=== PATIENT | female | born 1950 | race Caucasian/White ===

== ENCOUNTER 2021-08-10 08:59 | Day surgery (SDC) | payer SELFPAY ==
--- NOTE | 2021-08-05 14:18 | EKG12_ITS ---
Test Reason : PRE OP Blood Pressure : / mmHG Vent. Rate : 064 BPM Atrial Rate : 064 BPM P-R Int : 110 ms QRS Dur : 090 ms QT Int : 406 ms P-R-T Axes : 063 080 028 degrees QTc Int : 418 ms Sinus rhythm with short NM Nonspecific ST abnormality Abnormal ECG Confirmed by PIERCE CROFT, HERIBERTO ([id number]), online editor ARGELIA LINK ([id number]) on 08/06/2021 10:11:00 AM Referred By: Morgan Rouse Confirmed By:HERIBERTO PELAYO MD
[2021-08-05 15:44] LABS: Hematocrit 43.6 % (37-47); Hemoglobin 14.4 g/dL (12.0-15.0); Mean Corpuscular Hgb 29.9 pg (27.0-32.0); Mean Corpuscular Volume 90.5 fL (81-99); Mean Platelet Vol. 10.7 fl (6.2-12.0); Platelet Count 287 K/mm3 (150-450); RBC Distribution Width CV 13.6 % (11.6-14.6); RBC Distribution Width SD 45.2 fl (35.1-43.9); Red Blood Count 4.82 M/mm3 (4.2-5.4); White Blood Count 5.5 K/mm3 (4.4-11.0)
[2021-08-05 15:59] LABS: Prothrombin Time (Protime)PT. 12.7 SECONDS (11.7-14.9)
[2021-08-05 16:00] LABS: Partial Thromboplast Time 35.4 Seconds (24.1-36.2)
[2021-08-05 16:19] LABS: AST(SGOT) 19 U/L (15-37); Alanine Aminotransfer ALT/SGPT 31 U/L (13-56); Albumin, Serum 3.8 g/dL (3.2-5.0); Alkaline Phosphatase 42 U/L (45-117); Anion Gap 5 (5-15); BUN 14 mg/dL (7-18); BUN/Creat Ratio 15.9 RATIO (10-20); Bilirubin, Direct 0.14 mg/dL (0.00-0.30); Calcium,Total 9.5 mg/dL (8.5-10.1); Chloride 103 mmol/L (98-107); Creatinine, Serum 0.88 mg/dL (0.55-1.02); EST Glomerular Filtration Rate 68 mL/min (>60); Est Glom Filt Rate - Afr Amer 82 mL/min (>60); Globulin 3.9 g/dL (2.2-4.2); Glucose 97 mg/dL (74-106); Magnesium 2.5 mg/dL (1.6-2.6); Potassium 3.9 mmol/L (3.5-5.1); Protein, Total 7.7 g/dL (6.4-8.2); Sodium Level 139 mmol/L (136-145)
--- NOTE | 2021-08-09 13:05 | PCM.HP.BLA ---
History and Physical Date of Admission: 08/10/21 Surgical History and Physical Laury Leblanc, a 71 year old female 0, presents for AP Repair on August 10, 2021 at 10:30. -- Bladder Prolapse and Pressure -- Laury presents with c/o a bulge from her vagina which began approx 6-8yrs ago and has been worsening to the point she cannot urinate without pushing it back in. Pt also relates she has difficulty moving her bowels at times when this pressure/bulge is severe. Pt had a RAHEL/BSO in 1998 and took hrT's for approx 5yrs, and several yrs after stopping the HRT's she noted this starting. Cystocele which began years ago. Laury claims it started gradually and has been present constantly for years. It occurs all the time. It is located in the vagina. Severity is severe. It is aggravated by any activity. Associated signs and symptoms are Bulge from vagina. Additional comments are: Had an abdominal hysterectomy done 20+ years ago. Stopped estrogen approximately 5 years after that. Has had symptoms for about 15 years. MEDICATIONS HISTORY: ALLERGIES: Keflex, Rash Infections - Chicken pox childhood Illnesses - Diverticulitis, DVT Accidents - None Hospitalizations - see surgery Review of Systems: GENERAL - Denies fever, or chills SKIN - Denies skin changes EYES - Denies visual changes EARS - Denies difficulty hearing NOSE - Denies nasal congestion or bleeding MOUTH - Denies sore throat or difficulty swallowing NECK - Denies pain or swelling RESPIRATORY - Denies shortness of breath or wheezing CARDIOVASCULAR - Denies palpitations or chest pain GASTROINTESTINAL - Denies nausea, vomiting, diarrhea, constipation GENITOURINARY - Denies dysuria, frequency of urination, incontinence of urine MUSCULOSKELETAL - Denies joint or muscle pain NEUROLOGICAL - Denies localized numbness or weakness PSYCHIATRIC - Denies depression or anxiety ENDOCRINE - Denies heat or cold intolerance, weight loss or gain HEMATO-IMMUNOLOGIC - Denies excesive bleeding with cuts SOCIAL HISTORY: Alcohol Use - denies drinking Smoking - denies smoking Diet - balanced Diet Lifestyle - moderate stress lifestyle and single Exercise - active work Seat Belt Use - N/A Employer - [employer] and self employed Job Description - [employer] Illicit Drug Use - denies use of street drugs Sexual Activity - sexually inactive Control - Not active FAMILY HISTORY: nc MENSTRUAL HISTORY: LMP Known?- Prior Hysterectomy PAST PREGNANCIES: Total Pregnancies - 0; Full Term Pregnancies - 0; Premature - 0; Abortions, Induced - 0; Abortions, Spontaneous - 0; Ectopics - 0; Multiple Births - 0; Living Children - 0 SURGICAL HISTORY: 1. Umbilical and Inguinal hernia repair 2015 2. RAHEL/BSO, 1998 3. Appendectomy 2013 PHYSICAL EXAM BP- 158/86 Sitting, Right arm, regular cuff Weight- 191.26554 lbs Height- 62 inch BMI:35.0 CONSTITUTIONAL - NAD, well nourished, and well developed SKIN - No rash, lesions, or ulcers HEENT - Normocephalic, PERRLA, EOMI NECK - No nodes, no nuchal rigidity and thyroid normal size and texture LYMPH NODES - Palpation of lymph nodes in neck and groins within normal limits LUNGS - CTA x2 without wheezes, crackles or rales CARDIAC - Regular rate and rhythm without rubs, murmurs, or gallops ABDOMEN - Without hepatosplenomegaly, distention, masses, rebound, or guarding; normal bowel sounds; no hernias EXTREMITIES - No edema or calf tenderness NEUROLOGICAL - Cranial nerves II-XII grossly intact PSYCHIATRIC - A and O to time, place, person, mood and affect External Genitial Vagina - non-tender without lesions Urethra/Urethral Meatus - non-tender Bladder - non-tender Vagina - loss of rugae, Large cystocele which protrudes 4 to 5 cm outside of the vaginal introitus. Some hyperkeratosis present., Possible enterocele present. Mild rectocele present and moderately open perineal body. Cervix - Prior hysterectomy-well healed vaginal cuff Uterus - prior hysterectomy-absent Adnexa - clear without massess or tenderness ASSESSMENT/PLAN: 1. Cystocele Midline Large and symptomatic. Discussed treatment options including expectant management, pessary use, or proceeding with an anterior posterior repair. Patient desires the surgery. Will use intravaginal estrogen and proceed and for to 6 weeks. Discussed the procedure at length including the risks, benefits, and alternatives and patient desires that we proceed. She also understands that she should use intravaginal estrogen for extended period of time to help prevent recurrence. All questions were answered and we consider the patient well-informed.
[2021-08-10] VITALS (12 sets, daily range): BP systolic 112–196; BP diastolic 54–85; PULSE 47–69; RESP 16–17; TEMP 36–37.1; O2SAT 94–100; BMI 34.2; BMI 36.3
[2021-08-10] MEDS: Lactated Ringers 1,000 ML 100 ML IV ×3 (09:55→14:22)
--- NOTE | 2021-08-10 10:40 | VAGMU_PTH ---
PATIENT: LAW GIFFORD [place] [facility] [place][id number] AGE/SX: 71/F ROOM: RE08/10/[address]: Dr. Morgan Rouse MD : [id number] BED: DIS: 08/11/2021 SPEC #: [id number] RECD: 08/10/21 13:54 STATUS: GORDON PITTS #: [id number] ENRIQUE: 08/10/21 10:[address]: Morgan Rouse DEPT: SURGICAL PATHOLOGY RECD BY: Marti Richardson ENTERED: 08/11/21 08:53 SP TYPE: VAG MUCOSA OTHR DR: MD Dr. Clayton Barahona MD Tissues: Vagina, NOS Procedures: Surgery Specimen Level III HEADER OPERATION: Repair, anterior and posterior PRE-OP DIAGNOSIS: Cystocele midline TISSUE SUBMITTED: Vaginal mucosa MICROSCOPIC DIAGNOSIS Vaginal mucosa, anterior and posterior repair: Fragments of squamous mucosa with minimal chronic inflammation. SJ:chencho 08/12/2021 MICROSCOPIC DESCRIPTION Slides are reviewed. GROSS DESCRIPTION Received in fixative is one container labeled with the patient's name and designated vaginal mucosa. The specimen consists of eight irregular fragments of pink-louis mucosa and attached submucosal tissue ranging in size from 1 to 8 cm. No mucosal mass lesions are identified. Data Recovery Planner sections are submitted in two cassettes. / AM:chencho 08/11/21 TC:3 CPT: 83002
[2021-08-10] MEDS: Cefotetan 2 GM in 0.9% NS 100 ML IV (11:07)
--- NOTE | 2021-08-10 11:09 | OP.PCM_ITS ---
Report of Operation Date of Procedure: 08/11/21 Pre-Operative Diagnosis: Cystocele and Rectocele Post-Operative Diagnosis: Cystocele and Rectocele Surgery/Procedure Performed:: Anterior and Posterior Repair Description of Surgical Findings:: Large cystocele protruding 3 to 4 cm outside vaginal introitus. Moderate rectocele. Surgeon: Morgan Rouse sales development director: Marguerite Rincon sales development director: Raghavendra Kasper Type of Anesthesia: General/Regional (Endotracheal) Anesthesiologist: Chava William Specimen's removed: Vaginal mucosa Drains: Heart to straight drain Estimated Blood Loss (mL): 100 cc Fluids Replaced: Crystalloid Description of Procedure: Surgeon: Morgan Rouse MD, FACOG Indications: This is a 71-year-old patient who is been having problems with cystocele and rectocele after hysterectomy. Conservative measures have not been helpful. Given this the patient desires that we proceed the above procedure. She has been counseled regarding the risk and indications of this procedure including the possibility of bleeding, infection, and injury to surrounding structures such as bowel bladder. All questions were answered. Procedure: Patient was taken to the operating room where after induction of general anesthesia she was placed in the dorsal lithotomy position and prepped and draped in the usual sterile fashion. The bladder was drained of approx imately 50 cc of clear yellow urine with red rubber catheter. Anterior vaginal mucosa was undermined and divided and then imbricated toward the midline with interrupted 0 Vicryl sutures. Vaginal mucosa was trimmed and then closed with interrupted 2-0 chromic suture. Hemostasis was noted. Attention was turned toward the posterior repair portion of the procedure. Remnants of the hymenal ring were grasped with Allises and a V-shaped incision was made in the perineum. Rectovaginal mucosa was then undermined divided and then imbricated toward the midline with interrupted 0 Vicryl suture. Vaginal mucosa was trimmed and then closed with running locked 2-0 chromic suture. Remnants of the bulbocavernosus muscles were identified and brought toward the midline with a single [id number] 0 Vicryl suture and perineum was closed in the usual fashion with running and subcuticular, and [id number] 2-0 chromic suture. Hemostasis was noted. Heart catheter was placed and clear yellow urine was noted. Vagina was packed with iodoform tape. Patient tolerated the procedure well was taken to recovery room in satisfactory condition; sponge instrument and needle counts were all reportedly correct. Estimated blood loss for the case was 100 cc. Ancef 2 g IV was given prior to beginning the operative procedure. There were no apparent complications of the surgery. Specimen to pathology was vaginal mucosa. Grafts/Implants Used: None Admit VTE Documentation VTE Present on Admission: Yes VTE Mechan Device Prophylaxis: SCD's VTE Pharm Prophylaxis ordered?: Yes
--- NOTE | 2021-08-10 11:12 | DCINST_ITS ---
Discharge Instructions Diet Discharge Diet: No restrictions Activity Discharge Activity: May Shower and May Take a Tub Bath May resume sexual activity in: 6 weeks (nothing in the vagina.) Lifting Restrictions: 25 pounds for 6 weeks. Additional Activity Instructions:: Nothing in the vagina for 6 weeks please; no lifting more than 20-25 lbs for 6 weeks. Use Ibuprophen 800 mg orally every 8 hours as needed for pain. Can also add Tylenol 1000 mg every 8 hours if needed for pain. If Ibuprophen and Tylenol are not effective then use the Oxycodone but keep in mind it can cause serious constipation issues. Drink lots of water. Call if bleeding more than a pad per hour. Use the colace as constipation is a big issue after this type of surgery. Steps and walking are OK. Activity is encouraged but do not over do it !! Follow Up Care Please Follow Up With: Morgan Rouse MD When: Call [phone] for an appointment to be seen in 2 weeks. Test Results: Test results from this visit will be discussed in further detail at your follow-up appointment, if applicable. Discharge Plan Admission Primary Reason for Your Visit: Anterior and posterior repair Attending Provider: Morgan Rouse Primary Care Provider: Clayton Strauss Consulting Providers: Rajeev Rouse Discharge Orders/Prescriptions Prescriptions: New oxycodone 5 mg capsule 5 mg PO Q6H PRN (Reason: pain) 7 Days Qty: 7 RF: 0 docusate sodium 100 mg tablet 100 mg PO BID PRN (Reason: constipation) Qty: 60 RF: 1 Continued magnesium 500 mg Tablet 15 mg PO DAILY RF: 0 calcium 500 mg Tablet 1,500 mg PO DAILY RF: 0 vitamin E 800 unit Capsule 800 unit PO DAILY RF: 0 vitamin A 10,000 unit Tablet 10,000 unit PO DAILY RF: 0 zinc 50 mg Capsule 50 mg PO DAILY RF: 0 cholecalciferol (vitamin D3) [Vitamin D3] 125 mcg (5,000 unit) Tablet 125 mcg PO DAILY RF: 0 [place] 3-6-9 1,200 mg Capsule 2 cap PO DAILY RF: 0 aspirin 81 mg Capsule 81 mg PO DAILY RF: 0 Composure 3 - 6 tab PO/SL DAILY RF: 0 Referrals / Follow Up: Clayton Strauss MD [Primary Care Provider] - Disposition Disposition (needs filled in before D/C Order can be placed): Home, Self Care
[2021-08-10] MEDS: Enoxaparin 40 MG/0.4 ML Syringe SC (17:03)
[2021-08-10] MEDS: 0.9% Saline Lock 10 ML Syringe IV (17:03)
[2021-08-10] MEDS: Acetaminophen 500 MG Tablet 1000 MG PO ×2 (17:03→23:24)
--- NOTE | 2021-08-10 18:39 | PCS.PANDOC ---
PANDEMIC DOCUMENTATION INITIATED: Date: 06/15/2021 Time: 190
[2021-08-10] MEDS: Docusate Sodium 100 MG Capsule PO (19:58)
[2021-08-11 03:45] VITALS: BP 145/68; PULSE 57; RESP 15; TEMP 36.9; O2SAT 97
[2021-08-11 06:07] LABS: Hematocrit 37.8 % (37-47); Hemoglobin 12.2 g/dL (12.0-15.0); Mean Corp Hgb Conc 32.3 g/dL (32-36); Mean Corpuscular Hgb 30.2 pg (27.0-32.0); Mean Corpuscular Volume 93.6 fL (81-99); Mean Platelet Vol. 10.9 fl (6.2-12.0); Platelet Count 212 K/mm3 (150-450); RBC Distribution Width CV 13.8 % (11.6-14.6); RBC Distribution Width SD 46.8 fl (35.1-43.9); Red Blood Count 4.04 M/mm3 (4.2-5.4); White Blood Count 7.1 K/mm3 (4.4-11.0)
[2021-08-11] MEDS: Acetaminophen 500 MG Tablet 1000 MG PO (06:14)
[2021-08-11 06:45] LABS: Creatinine, Serum 0.91 mg/dL (0.55-1.02); EST Glomerular Filtration Rate 65 mL/min (>60); Est Glom Filt Rate - Afr Amer 79 mL/min (>60); Estimated Creatinine Clearance 46.15 ml/min
--- NOTE | 2021-08-11 08:55 | PCM.PN.OB ---
Subjective Subjective Patient without complaints. Tolerating diet well. Able to void on own without Heart catheter in place.Positive flatus. Hemoglobin and creatinine okay. Will discharge to home with routine instructions. Objective Data Objective Data Vital Signs: Vital Signs Temp Pulse Resp BP Pulse Ox 98.5 F 57 L 15 145/68 H 97 08/11/21 03:45 08/11/21 03:45 08/11/21 03:45 08/11/21 03:45 08/11/21 03:45 Oxygen Flow Rate (L/min) 2 Oxygen Delivery Method Room Air Weight: 199 lb Body Mass Index (BMI) 36.3 Intake & Output: Intake and Output for Last 24 Hours 08/09/21 08/10/21 08/11/21 23:59 23:59 23:59 Intake Total 2980 / 3880 1200 / 1200 Output Total 640 / 1240 900 / 900 Balance 2340 / 2640 300 / 300 Lab / Micro Data Result Diagrams: 08/11/21 05:40 08/11/21 05:40 Labs: Laboratory Results - last 24 hr 08/11/21 05:40: WBC 7.1, RBC 4.04 L, Hgb 12.2, Hct 37.8, MCV 93.6, MCH 30.2, MCHC 32.3, RDW Std Deviation 46.8 H, RDW Coeff of Rick 13.8, Plt Count 212, MPV 10.9 08/11/21 05:40: Creatinine 0.91, Estim Creat Clear Calc 46.15, Est GFR (MDRD) Af Amer 79, Est GFR (MDRD) Non-Af 65 Micro: Microbiology 08/05/21 14:20 Interface Orders SARS-CoV-2 Antigen (Rapid) - Final
[2021-08-11 08:58] VITALS: BP 160/67; PULSE 67; RESP 18; TEMP 37.2; O2SAT 95
[2021-08-11] MEDS: Docusate Sodium 100 MG Capsule PO (09:01)
[2021-08-11 09:55] VITALS: O2SAT 97
[2021-08-11 11:06] VITALS: BP 160/67; PULSE 67; RESP 18; TEMP 37.2; O2SAT 95
== END 2021-08-11 11:06 | disposition home or self-care (01) ==
LOC: SDC 09:00 → AC 09:01 → MS3 08-11 14:18
PROVIDERS: Anesthesiology; PCP Family Medicine; Referring Provider Obstetrics & Gynecology; Visit Provider Obstetrics & Gynecology
PROC: (CPT 57260; principal; 2021-08-10 10:25)
DX: N81.11 Cystocele, midline (principal); N81.6 Rectocele; K21.9 Gastro-esophageal reflux disease without esophagitis; M19.90 Unspecified osteoarthritis, unspecified site; Z86.718 Personal history of other venous thrombosis and embolism; Z79.899 Other long term (current) drug therapy
CPT/HCPCS: 57260; 36415; 80053; 82248; 82565; 83735; 85027; 85610; 85730; 86850; 86900; 86901; 87426; 88304; 93005; 99251; C9803; J7120; A4216; G0463; J2405